=== PATIENT | male | born 1960 | race Caucasian/White ===

== ENCOUNTER → 2016-12-04 | Outpatient (CLI) | payer MEDICARE, MEDICAID | LOC: LAB 07:57 | PROVIDERS: ATTEND Nurse Practitioner Family | DX: Z51.81 Encounter for therapeutic drug level monitoring (principal); Z79.01 Long term (current) use of anticoagulants | CPT/HCPCS: 36415; 85610 ==

== ENCOUNTER 2016-12-06 12:42 | Outpatient (RCR) | payer MEDICARE, MEDICAID ==
[~2016-12-06 12:42] MED LIST: AML5T PO; AMLO10TA82 PO; ATOR80TA PO; CLPD75T PO; HCT25T PO; LOSA100T8 PO; METO25TA2 PO; PRAM0.252 PO
== END 2017-03-06 | disposition home or self-care (01) ==
LOC: DT 12:42
DX: E11.65 Type 2 diabetes mellitus with hyperglycemia (principal); E66.3 Overweight; Z68.29 Body mass index [BMI] 29.0-29.9, adult
CPT/HCPCS: 97802

== ENCOUNTER → 2016-12-12 | Outpatient (CLI) | payer MEDICARE, MEDICAID | LOC: LAB 09:10 | PROVIDERS: ATTEND Nurse Practitioner Family | DX: Z51.81 Encounter for therapeutic drug level monitoring (principal); Z79.01 Long term (current) use of anticoagulants | CPT/HCPCS: 36415; 85610 ==

== ENCOUNTER → 2016-12-29 | Outpatient (CLI) | payer MEDICARE, MEDICAID | LOC: LAB 09:08 | PROVIDERS: ATTEND Nurse Practitioner Family | DX: Z51.81 Encounter for therapeutic drug level monitoring (principal); Z79.01 Long term (current) use of anticoagulants | CPT/HCPCS: 36415; 85610 ==

== ENCOUNTER → 2017-01-30 | Outpatient (REF) | payer MEDICARE, MEDICAID | LOC: LAB 11:37 | PROVIDERS: ATTEND Nurse Practitioner Family | DX: Z51.81 Encounter for therapeutic drug level monitoring (principal); Z79.01 Long term (current) use of anticoagulants; R73.09 Other abnormal glucose | CPT/HCPCS: 83036; 85610 ==

== ENCOUNTER → 2017-02-26 | Outpatient (CLI) | payer MEDICARE, MEDICAID, OTHER | LOC: LAB 09:53 | PROVIDERS: ATTEND Nurse Practitioner Family | DX: Z51.81 Encounter for therapeutic drug level monitoring (principal); Z79.01 Long term (current) use of anticoagulants | CPT/HCPCS: 36415; 85610 ==